=== PATIENT | female | born 1955 ===

== ENCOUNTER → 2020-11-08 10:18 | Outpatient (CLI) | payer BC, SELFPAY ==
[2020-11-08 20:25] LABS: COVID19 - ORCAS (NP or Nasal) Negative (Negative)
== END ==
PROVIDERS: PCP Family Medicine; Referring Provider Family Medicine; Visit Provider Family Medicine
DX: Z20.822 Contact with and (suspected) exposure to COVID-19 (principal)
CPT/HCPCS: U0003